=== PATIENT | female | born 1965 | race Caucasian/White ===

== ENCOUNTER 2017-07-23 10:54 | Emergency (ER) | payer MEDICAID ==
--- NOTE | 2017-07-23 11:30 | ERNOTE ---
Upper Extremity HPI - Narrative Date of Service: 07/23/17 - General Extremities Pain Location: wrist: left, hand: left Time Seen by Provider: 07/23/17 11:11 Source: patient Exam Limitations: no limitations - Immun/Allergies/Home Medications Immunizations: IMMUNIZATION HX Immunizations Up to Date Yes History of Influenza Vaccine Yes Hx Pneumococcal Vaccination Yes Allergies/Adverse Reactions: Allergies Allergy/AdvReac Type Severity Reaction Status Date / Time codeine [Codeine] Allergy Severe Other Verified 07/23/17 11:06 amoxicillin [Amoxicillin] Allergy Intermediate Itching Verified 07/23/17 11:06 azithromycin Allergy Intermediate Vomiting Verified 07/23/17 11:06 [From Zithromax Z-Gilbert] clindamycin Allergy Intermediate Vomiting Verified 07/23/17 11:06 doxycycline Allergy Intermediate Vomiting Verified 07/23/17 11:06 prednisone Allergy Intermediate Vomiting Verified 07/23/17 11:06 Sulfa (Sulfonamide Allergy Intermediate Other Verified 07/23/17 11:06 Antibiotics) sulfamethoxazole Allergy Intermediate Vomiting Verified 07/23/17 11:06 [From Bactrim] trimethoprim [From Bactrim] Allergy Intermediate Vomiting Verified 07/23/17 11: 06 Home Medications: HOME MEDICATIONS Albuterol Sulfate [Proair Hfa] 8.5 gm IH PRN PRN 11/11/13 [Last Taken 02/22/14] Divalproex Sodium [Depakote ER] 1,000 mg PO QAM 11/11/13 [Last Taken 02/22/14] Carbamazepine [Carbamazepine Xr] 400 mg PO BID 08/24/14 [Last Taken Unknown] Albuterol Sulfate [Proair Hfa] 2 puff IH QID PRN 12/09/14 [Last Taken Unknown] Carbamazepine [Carbamazepine Xr] 200 mg PO TID 12/09/14 [Last Taken Unknown] Clobazam [Onfi] 10 mg PO DAILY 12/09/14 [Last Taken Unknown] Losartan Potassium [Cozaar] 50 mg PO DAILY 07/23/17 [Last Taken Unknown] - History of Present Illness Narrative: Patient presents to the ED for a wrist and hand injury last night. She was walking her dog and there was a crack in the sidewalk and she tripped, falling backwards and to the left, landing on her left hand. She states the only thing that is bothering her is her left hand and wrist. She denies other injuries. No LOC. no head injury, no neck or back pain. Pain moderate. Better with rest and worse with movement. Has not seen anyone else for this. Denies acute N/T/W. Today she noticed ongoing pain and swelling at her wrist and hand so came to the ED. Denies CP or SOB, no abdominal pain. No LE injuries. She denies acute shoulder or elbow pain. Occurred: yesterday Location of Incident: home Severity: moderate Method of Injury: Reports: fell, direct blow Reason for Fall: Reports: tripped Loss of Consciousness: Reports: no loss of consciousness Modifying Factors - (Improves): Reports: rest Modifying Factors - (Worsens): Reports: movement Associated Symptoms: Denies: tingling, weakness, numbness distally, loss of feeling Other Injuries: Reports: none Prior Treament: Denies: recently seen Review of Systems - Review of Systems Constitutional: Absent: fever Respiratory: Absent: shortness of breath Cardiology: Absent: chest pain Gastrointestinal/Abdominal: Absent: abdominal pain Musculoskeletal: Present: See HPI Skin: Present: other - no lacerations Neurological: Absent: weakness - Patient's Past Medical History Patient History - Medical: Other Patient History - Cardiac/Respiratory: Asthma, Hypertension Patient History - Cancer: No Hx of Cancer Patient History - Surgical Procedures: Cholecystectomy Patient History - Other: None LMP (females 10-50): post - Social History Living Situations: home Psych History: No pertinent hx Smoking Status: Current every day smoker Alcohol Use: none Drug Use: none - Immunizations Immunizations Up to Date: Yes Hx Pneumococcal Vaccination: Yes History of Influenza Vaccine: Yes Physical Exam - Physical Exam General Appearance: Present: alert, no apparent distress Head Exam: Present: normal inspection, no evidence of injury Eye Exam: PERRL: bilateral Ears, Nose, Throat: Present: normal ENT inspection Neck: Present: normal inspection, nontender, other - No posterior C-spine tenderness. ROM without pain, cleared clinically. Absent: tender posterior midline Respiratory: Present: no respiratory distress, normal breath sounds, no accessory muscle use, lungs clear Cardiovascular/Chest: Present: regular rate, rhythm, normal peripheral pulses, other - strong radial pulse Gastrointestinal/Abdominal: Present: normal bowel sounds, nontender, nondistended, soft, no organomegaly Back Exam: Present: normal range of motion, no vertebral tenderness Extremity Exam: Present: other - mild swelling left hand and wrist. Tenderness iffusele dorsum aof wrist and hand. No localizing elbow or shouilder tendenrss. No LE tenderness. No evidence of open fracture. No clear loss of tendon function, pain does limit ecam. Neurological Exam: Present: alert, other - pain does limit exam somewhat, no clear loss of motor or sensory function. LT sensation intact Skin Exam: Present: normal color, warm/dry, other - no laceration seen ED Progress - Vital Signs Patient's Vital Signs:: I have reviewed the patient's vital signs. Vital Signs: Vital Signs 07/23/17 10:55 Temperature 36.3 C L Pulse Rate 84 Respiratory 16 Rate Blood Pressure 151/92 O2 Sat by Pulse 98 Oximetry - X-Ray X-Ray #1 X-Ray: wrist Interpretation: Interp. by me X-ray Comments: I reviewed images and offical report X-Ray #2 X-Ray: hand Interpretation: Interp. by me X-ray Comments: I reviewed images and official report - Progress/Reassessment Chief Complaint: Hand Injury/Pain Progress Note-Subjective: 07/23/17 12:26 I felt there was a small non-displaced distal radius fracture. X-ray read as negative, I think this may be a small fracture bsed on Sx. I spoke with Vivek Ayala on for ortho, he recommends sugartong and sling with office follow-up. Splint placed per nursing as is protocol here. I discussed warning signs and reasons to return as well as the need for close f/u. Departure Clinical Impression: Wrist pain - Departure Disposition: Home self-care Condition: Stable Instructions: Cast or Splint Care, [id number] Additional Instructions: Rest. Ice. Elevate. Tylenol. Call the orthpedics office Tuesday for an appointment, I spoke with Vivek Ayala the Orthopedist public transportation inspector today. Return for increased pain, numbness, tingling, weakness or if your condition worsens or changes in any way. Referrals: Jl Jimenez MD [Primary Care Provider] -
[2017-07-23 12:46] VITALS: BP 144/79
== END 2017-07-23 12:35 | disposition home or self-care (01) ==
LOC: ER 10:54
PROC: 2W3DX1Z Immobilization of Left Lower Arm using Splint (ICD-10-PCS; principal; 2017-07-23)
DX: M25.532 Pain in left wrist (principal); I10 Essential (primary) hypertension; F17.200 Nicotine dependence, unspecified, uncomplicated; W01.0XXA Fall on same level from slipping, tripping and stumbling without subsequent striking against object, initial encounter; Y93.K1 Activity, walking an animal; Y92.480 Sidewalk as the place of occurrence of the external cause